=== PATIENT | female | born 1955 | race Caucasian/White ===

== ENCOUNTER 2021-05-27 14:36 | Emergency (ER) | payer OTHER ==
[~2021-05-27 14:36] MED LIST: ASPIRIN EC81 MG PO; ATIVAN0.5 MG PO; CEFDINIR300 MG PO; FLEXERIL10 MG PO; HCTZ25 MG PO; IBUPROFEN800 MG PO; INDERAL LA80 MG PO; MIRAPEX1 MG PO; MS CONTIN30 MG PO; ONDANSETRON ODT4 MG PO; PAMELOR25 MG PO; PROTONIX 40MG T40 MG PO; VENLAFAXINE HCL75 MG PO; VICODIN 10/3251 EACH PO; VITAMIN D-32000 UNIT PO; ZOLOFT50 MG PO
[2021-05-27 14:57] LABS: BASOPHIL 0.6 % (0-2); EOSINOPHIL 0.6 % (0-7); HCT 35.8 % (37.0-47.0); HGB 12.3 g/dl (12.5-16.0); MCH 28.7 pg (25.0-31.0); MCHC 34.4 g/dL (32.0-36.0); MCV 83.4 fL (78.0-100.0); MONOCYTE 5.7 % (0-12); MPV 10.7 fL (6.0-9.5); NEUTROPHIL 64.7 % (41-80); NRBC 0; PLT 192 K/uL (150-400); RBC 4.29 M/uL (4.20-5.40); RDW 13.9 % (11.5-14.0); WBC 12.3 K/uL (4.0-10.5)
[2021-05-27 15:12] LABS: ALBUMIN 3.2 g/dL (3.4-5.0); BILIRUBIN - TOTAL 0.2 mg/dL (0.2-1.0); BUN/CREAT RATIO (CALC) 31.7 RATIO; CREATININE 0.63 mg/dL (0.51-0.95); GLOBULIN (CALCULATION) 3.5 g/dL; POTASSIUM 3.3 mmol/L (3.5-5.1); TOTAL PROTEIN 6.7 g/dL (6.4-8.2)
[2021-05-27] MEDS ORDERED: BENTYL10 MG PO (17:31)
[2021-05-27] MEDS ORDERED: PROTONIX 40MG T40 MG PO (17:31)
[2021-05-27] MEDS ORDERED: CARAFATE S500 MG/TSP PO (17:31)
== END 2021-05-27 18:03 | disposition home or self-care (01) ==
LOC: FER 14:36
PROVIDERS: Emergency Medicine
DX: K22.4 Dyskinesia of esophagus (principal); R07.89 Other chest pain; I10 Essential (primary) hypertension; Z88.6 Allergy status to analgesic agent
CPT/HCPCS: 36415; 71045; 80053; 83690; 84484; 85025; 93005; C9113; J1170

== ENCOUNTER 2022-01-20 12:40 | Emergency (ER) | payer OTHER ==
[~2022-01-20 12:40] MED LIST changes: +BENTYL10 MG PO; +CARAFATE S500 MG/TSP PO
[2022-01-20 14:01] LABS: BASOPHIL 0.2 % (0-2); EOSINOPHIL 0.1 % (0-7); HCT 36.7 % (37.0-47.0); HGB 11.7 g/dl (12.5-16.0); LYMPHOCYTE 19.5 % (15-48); MCH 26.4 pg (25.0-31.0); MCHC 31.9 g/dL (32.0-36.0); MCV 82.7 fL (78.0-100.0); MONOCYTE 6.3 % (0-12); NEUTROPHIL 73.4 % (41-80); NRBC 0; PLT 168 K/uL (150-400); RBC 4.44 M/uL (4.20-5.40); RDW 14.8 % (11.5-14.0); WBC 12.8 K/uL (4.0-10.5)
[2022-01-20 14:36] LABS: BUN/CREAT RATIO (CALC) 26.3 RATIO; CREATININE 0.57 mg/dL (0.51-0.95); POTASSIUM 3.8 mmol/L (3.5-5.1)
== END 2022-01-20 16:04 | disposition home or self-care (01) ==
LOC: FER 12:40
PROVIDERS: Emergency Medicine
DX: K21.9 Gastro-esophageal reflux disease without esophagitis (principal); R07.89 Other chest pain; R51.9 Headache, unspecified
CPT/HCPCS: 36415; 71046; 80048; 82553; 84484; 85025; 93005; J1885